=== PATIENT | male | born 2005 | race Caucasian/White ===

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

== ENCOUNTER 2025-06-09 18:35 | Emergency (ER) | payer SELFPAY ==
--- NOTE | ~2025-06-09 | XR_ITS ---
CLINICAL HISTORY: ?dislocation s p fall 3 view right shoulder Comparison: None provided Findings: No fractures or dislocations. No significant loss of joint space or osteophytes. No erosions. No radiopaque foreign body. IMPRESSION: 1. No acute findings This document has been electronically signed by: Miguel Angel Byrne MD on 06/09/2025 20:01:14
[2025-06-09 18:56] VITALS: BP 117/73; PULSE 55; RESP 18; TEMP 36; O2SAT 95; BMI 29.9
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
[2025-06-09 19:53] VITALS: BP 117/73; PULSE 55; RESP 18; TEMP 36; O2SAT 95
== END 2025-06-09 20:03 | disposition home or self-care (01) ==
PROVIDERS: Emergency Provider Emergency Medicine
DX: S43.014A Anterior dislocation of right humerus, initial encounter (principal); M25.551 Pain in right hip; V19.20XA Unspecified pedal cyclist injured in collision with unspecified motor vehicles in nontraffic accident, initial encounter; Y93.9 Activity, unspecified; Y92.9 Unspecified place or not applicable; Y99.9 Unspecified external cause status
CPT/HCPCS: 73030; 99283; 99284

== ENCOUNTER → 2025-06-09 19:10 | Outpatient (BNV) | payer SELFPAY | PROVIDERS: Emergency Provider Emergency Medicine; Visit Provider Radiology Diagnostic Radiology | DX: M25.511 Pain in right shoulder (principal) | CPT/HCPCS: 73030 ==

== ENCOUNTER 2025-06-26 09:56 | Outpatient (AMB) | payer SELFPAY ==
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
[2025-06-26 10:01] VITALS: BMI 29.5
--- OUTSIDE RECORDS SUMMARY | 2025-06-26 10:50 | XMS_ITS | Clinical Summary ---
Author Organization [facility] Address [address] [place] [id number] Phone Care Team Providers Care Outside Cutter Hand Name Role Phone Butch Song MD Primary Care Provider Immunizations Immunization Administration Dates Next Due DTaP / Hep B / IPV 2005,2005, 005 DTaP 5 02/14/2010,04/17/2006 H1N1 Inj Preservative Free 09/27/2008,08/24/2006 ,2005 HPV Vaccine 9 Valent 07/17/2017,07/15/2016 Hep A, ped/adol 02/17/2014,03/03/2011 Hep B, ped/adol 2005 Hib (PRP-T) 04/17/2006, 5,2005,02/27 IPV 02/14/2010 Influenza, injectable, quadrivalent 07/17/2017 Influenza, injectable, quadr ivalent, preservative free 07/15/2016,07/10/2015 Influenza, injectable, trivalent 02/17/2014 MMR 02/08/2009,02/02/2006 Meningococcal Conj (Menactra) MCV4P 07/15/2016 Pneumococcal Conjugate 04/17/2006,2004,2005,02/27 Tdap 07/15/2016 Varicella 02/08/2009,02/02/2006 Social History Tobacco Use Types Packs/Day Years Used Date Smoking Tobacco: Never Comments:Never Smoker Sex and Gender Information Value Date Recorded Sex Assigned at Not on file Legal Sex Male 6:22 PM EDT Gender Identity Not on file Sexual Orientation Not on file Last Filed Vital Signs Vital Sign Reading Time Taken Comments Blood Pressure - - Pulse 88 07/17/2017 2:28 PM EDT Temperature 37.2 C (99 F) 08/10/2017 12:16 PM EDT Respiratory Rate - - Oxygen Saturation 99% 11/29/2014 4:51 PM EST Inhaled Oxygen Concentration - - Weight 50.2 kg (110 lb 9.6 oz) 08/10/2017 12:16 PM EDT Height 158.8 cm (5' 2.5 ) 08/10/2017 12:16 PM ED T Body Mass Index 19.91 08/10/2017 12:16 PM EDT Plan of Treatment Health Maintenance Due Date Last Done Comments Men B Vaccine (1 of 2 - Standard) 2021 COVID-19 Vaccine ( season) 2024 Influenza Vaccines (#1) 2025 07/17/20 17, 07/15/2016, 07/10/2015, Additional history exists DTaP,Tdap,and Td Vaccines (7 - Td or Tdap) 07/15/2026 07/15/2016, 02/14/2010, 04/17/2006, Additional history exists Hepatitis B Vaccines Completed 2005, 2005, 2005, Additional history exists HIB Vaccines Completed 04/17/2006, 07/10, 2005, Additional history exists Pneumococcal Vaccine Completed 04/17/2006, 2005, 2005, Additional history exists MMR Vaccines Completed 02/08/2009, 02/02/2006 Varicella Vaccines Completed 02/08/2009, 02/02/2006 IPV Vaccines Completed 02/14/2010, 07/10, 2005, Additional history exists Hepatitis A Vaccines Completed 02/17/2014, 03/03/20 11 Meningococcal Vaccine Aged Out 07/15/2016 No linda tiffany eligible based on patient's age to complete this topic HPV Vaccines Completed 07/17/2017, 07/15/2016 Care Teams Outside Cutter Hand Relationship Specialty Start Date End Date Butch Song MD [address] [place] [id number] PCP - General 03/17/18
== END 2025-06-26 10:40 | disposition home or self-care (01) ==
LOC: HO.HOS 09:56
PROVIDERS: Visit Provider Physician Assistant
DX: S43.014A Anterior dislocation of right humerus, initial encounter (principal)
CPT/HCPCS: 99203; G2211

== ENCOUNTER → 2025-06-26 09:56 | Outpatient (BNVA) | payer SELFPAY | PROVIDERS: Visit Provider Physician Assistant | DX: S43.014A Anterior dislocation of right humerus, initial encounter (principal); V29.91XA Electric (assisted) bicycle rider (driver) (passenger) injured in unspecified traffic accident, initial encounter; Y93.9 Activity, unspecified; Y92.9 Unspecified place or not applicable; Y99.9 Unspecified external cause status | CPT/HCPCS: 99202 ==

== ENCOUNTER 2025-08-25 08:24 | Outpatient (AMB) | payer SELFPAY ==
--- NOTE | 2025-08-25 08:33 | A.OFFVIS_ITS ---
Vital Signs 08/25/25 08:41 Height 5 ft 9 in Weight 200 lb BMI 29.5 Intake Visit Reasons: OV-Anterior dislocation of right shoulder Intake Note: Russell is a 20 year old male who presents today for a follow up of right shoulder dislocation, DOI 06/09/25. Today patient reports that he is doing well, he complains of weakness in his arm however he states his arm feels good. Allergies No Known Allergies (No Known Allergies*) Allergy (Verified 08/25/25 08:41) HPI HPI OV-Anterior dislocation of right shoulder: Details: 20-year-old gentleman returns to the office today for a follow-up right shoulder status post dislocation back in June. He states he did not attend physical therapy but he has been doing well with no recurrent episodes. 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 Negative apprehension test. 5/5 strength. Neurovascularly intact. Assessment & Plan Assessment & Plan (1) Anterior dislocation of right shoulder: Code(s): S43.014A - Anterior dislocation of right humerus, initial encounter Category: Medical Qualifiers: Encounter type: initial encounter Qualified Code(s): S43.014A - Anterior dislocation of right humerus, initial encounter Plan: Patient will continue with activities as tolerated avoiding activities of instability. He can return to work without restrictions. If symptoms arise or there is any concerns or he has another dislocation he will contact our office and I will order an MRI arthrogram of the right shoulder for further evaluation otherwise he will follow up as needed. Coding Level of Care Code Est Pt Level 3 (78910) Complex EM visit Add On G2211 Diagnoses Anterior dislocation of right shoulder S43.014A Encounter type: initial encounter
--- OUTSIDE RECORDS SUMMARY | 2025-08-25 08:40 | XMS_ITS | Clinical Summary ---
Author Organization [facility] Address [address] [place] [phone] Phone Care Team Providers Care Craps Dealer Name Role Phone Butch Song MD Primary Care Provider [phone] Immunizations Immunization Administration Dates Next Due DTaP [...] Vaccine (1 of 2 - Standard) 2021 Influenza Vaccines (#1) 2025 07/17/20 17, 07/15/2016, 07/10/2015, Additional history exists COVID-19 Vaccine (1 - season) 2025 DTaP,Tdap,and Td Vaccines (7 - Td or [...] HPV Vaccines Completed 07/17/2017, 07/15/2016 Care Teams Craps Dealer Relationship Specialty Start Date End Date Butch Song MD [address] [place] [id number] PCP - General 03/17/18
[2025-08-25 08:41] VITALS: BMI 29.5
--- OUTSIDE RECORDS SUMMARY | 2025-08-25 08:41 | XMS_ITS | Encounter Summary ---
Author Organization [facility] Address [address] [place] [id number] Phone Care Team Providers Care Sales And Marketing Vice President Name Role Phone Butch oSng MD Primary Care Provider [phone] Encounter Details Date Type Department Care Team (Late st Contact Info) Description 11/28/2011 Conversion Encounter [facility] [address] [place] [address] [place] [id number] Social History Tobacco Use Types Packs/Day Years Used Date Smoking Tobacco: Never Assessed Sex and Gender Information Value Date Recorded Sex Assigned at Not on file Legal Sex Male 6:22 PM EDT Gender Identity Not on file Sexual Orientation Not on file documented as of this encounter Plan of Treatment Not on file documented as of this encounter Visit Diagnoses Not on filedocumented in this encounter Care Teams Sales And Marketing Vice President Relationship Specialty Start Date End Date Butch Song MD [address] [place] [address] [place] [id number] PCP - General 03/17/18 documented as of this encounter
== END 2025-08-25 08:46 | disposition home or self-care (01) ==
LOC: HO.HOS 08:25
PROVIDERS: Visit Provider Physician Assistant
DX: S43.014A Anterior dislocation of right humerus, initial encounter (principal)
CPT/HCPCS: 99213; G2211

== ENCOUNTER → 2025-08-25 08:24 | Outpatient (BNVA) | payer SELFPAY | PROVIDERS: Visit Provider Physician Assistant | DX: R53.1 Weakness (principal); S43.014D Anterior dislocation of right humerus, subsequent encounter | CPT/HCPCS: 99212 ==